=== PATIENT | male | born 1950 | race Caucasian/White ===

== ENCOUNTER → 2021-11-09 14:34 | Outpatient (CLI) | payer MEDICARE, OTHER, SELFPAY ==
--- NOTE | ~2021-11-09 | XR_ITS ---
EXAMINATION: XR lumbar spine 2-3V DATE: 11/09/2021 14:57 INDICATION: Leg and hip weakness TECHNIQUE: Anteroposterior and lateral views of the lumbar spine, and cone-down lateral view of the l umbosacral junction were obtained. COMPARISON: None. FINDINGS: There are changes of anterior fusion with interbody device placement at L5-S1. There are 2 mm of retrolisthesis of L5 on S1. Bone alignment is otherwise normal. There is no fracture. The verte bral body heights are normal. Small degenerative osteophytes project from the anterior endplates of m ultiple vertebral bodies. 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 The bowel gas pattern is normal. IMPRESSION: 1. Anterior surgical changes at L5-S1 with mild lumbar spondylosis elsewhere. Reviewed, dictated and finalized at location B.
== END ==
PROVIDERS: PCP Family Medicine; Visit Provider Physician Assistant Medical
DX: R29.898 Other symptoms and signs involving the musculoskeletal system (principal); M47.896 Other spondylosis, lumbar region
CPT/HCPCS: 72100

== ENCOUNTER 2021-11-13 07:19 | Outpatient (CLI) | payer MEDICARE, OTHER, SELFPAY ==
[2021-11-13 09:07] LABS: Hepatitis B Surface Antigen Negative (Negative)
[2021-11-13 09:14] LABS: HAV RESULT Negative (Negative); Hepatitis B Core IgM Result Negative (Negative)
[2021-11-13 09:25] LABS: Hepatitis C Virus Antibody Negative (Negative)
[2021-11-17 16:14] LABS: CK-BB None Detected (None Detected); CK-MB 5 % (<5); CK-MM 77 % (95-100)
[2021-11-17 18:51] LABS: Alpha Fetoprotein Tumor Marker 1.8 ng/mL (<6.1)
== END 2021-11-13 07:20 | disposition home or self-care (01) ==
PROVIDERS: PCP Family Medicine; Visit Provider Physician Assistant Medical
DX: R74.8 Abnormal levels of other serum enzymes (principal); R76.8 Other specified abnormal immunological findings in serum; R79.89 Other specified abnormal findings of blood chemistry
CPT/HCPCS: 36415; 80074; 82105; 82550; 82552

== ENCOUNTER 2021-11-17 07:41 | Outpatient (CLI) | payer MEDICARE, OTHER, SELFPAY ==
--- NOTE | ~2021-11-17 | MR_ITS ---
EXAMINATION: MR brain/brain stem wo/w con DATE: 11/17/2021 08:37 INDICATION: R41.3 - Other amnesia . Patient also complains of declining leg strength. TECHNIQUE: Magnetic resonance imaging (MRI) of the brain and brainstem was performed without and with 18 mL MultiHance intravenous contrast. Sequences included sagittal and axial T1-weighted SE, axial d iffusion-weighted FS EPI ASSET, axial T2*-weighted GRE, axial T2-weighted FLAIR Propeller, and axial T2-weighted Propeller. Postcontrast axial and coronal T1-weighted SE was obtained. Apparent diffusion coefficient (ADC) maps were created. COMPARISON: None. FINDINGS: No abnormal restricted diffusion to suggest acute ischemic infarct. No MRI evidence of hemorrhage or extra-axial collection. Small foci of susceptibility, nonspecific but most likely reflective of prior microhemorrhages . Normal white matter. No evidence of advanced or lobar predominant parenchymal vol ume loss. Ventricles normal. Basilar cisterns are patent. Flow voids are preserved. Unremarkable sinu ses/orbits. IMPRESSION: 1. Normal brain MRI findings. Reviewed, dictated and finalized at location K.
[2021-11-17 08:15] LABS: Estimated Glomerular Filt Rate > 60
== END 2021-11-17 07:42 | disposition home or self-care (01) ==
PROVIDERS: PCP Physician Assistant Medical; Visit Provider Physician Assistant Medical
DX: R41.3 Other amnesia (principal); R53.1 Weakness
CPT/HCPCS: 70553; A9577

== ENCOUNTER → 2021-11-19 10:58 | Outpatient (CLI) | payer MEDICARE, OTHER, SELFPAY ==
--- NOTE | ~2021-11-19 | US_ITS ---
EXAMINATION: US abdomen complete DATE: 11/19/2021 11:27 INDICATION: Other specified abnormal findings of blood chemistry TECHNIQUE: Multiple grayscale and Doppler ultrasound images of the abdomen were obtained. COMPARISON: None available FINDINGS: Bowel gas obscures visualization of the pancreas. The visualized portions are unremarkable. The liver is normal with normal echogenicity and echotexture. No surface nodularity. Normal hepatope jeovany flow in the main portal vein. The gallbladder is normal with no abnormal wall thickening, pericho lecystic fluid or stones. The normal common bile duct measures 4 mm. There was no sonographic Turcios sign. The visualized portions of the aorta and inferior vena cava are normal. The right kidney measures 12.2 x 5.5 x 6.8 cm. The left kidney measures 12.2 x 5.7 x 6.2 cm. The kidn eys demonstrate normal parenchymal echogenicity. There is no hydronephrosis. The spleen is normal in appearance and measures 10.8 cm. IMPRESSION: 1. No sonographic correlate for the patient's symptoms. Reviewed, dictated and finalized at location A.
== END ==
PROVIDERS: PCP Family Medicine; Visit Provider Physician Assistant Medical
DX: R79.89 Other specified abnormal findings of blood chemistry (principal)
CPT/HCPCS: 76700

== ENCOUNTER 2022-03-04 08:34 | Outpatient (CLI) | payer MEDICARE, OTHER, SELFPAY ==
--- NOTE | 2022-03-04 11:00 | NEURO_ITS ---
Impression: # Complains of numbness and weakness of lower extremities. Known diabetic with history of multiple back surgeries. 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 # Asymmetrical sensory, no response. # Abnormal study with asymmetrical axonal neuropathy. # Abnormal neurogenic changes on needle/EMG exam. Nerve Conduction Studies Anti Sensory Summary Table Stim Site NR Peak (ms) P-T Amp (?V) Site1 Site2 Delta-P (ms) Dist (cm) Bhaskar (m/s) Left Sup Fibular Anti Sensory (Ant Lat Mall) NO RESPONSE 14 cm NR 14 cm Ant Lat Mall 16.0 Right Sup Fibular Anti Sensory (Ant Lat Mall) NO RESPONSE 14 cm NR 14 cm Ant Lat Mall 16.0 Left Sural Anti Sensory (Lat Mall) Calf 3.8 17.0 Calf Lat Mall 3.8 16.0 42 Right Sural Anti Sensory (Lat Mall) NO RESPONSE Calf NR Calf Lat Mall 16.0 Motor Summary Table Stim Site NR Onset (ms) O-P Amp (mV) Site1 Site2 Delta-0 (ms) Dist (cm) Bhaskar (m/s) Left Peroneal Motor (Vastus Med) DISPERSED RESPONSE Ankle NR Popit Ankle 41.0 Popit NR Right Peroneal Motor (Vastus Med) NO RESPONSE Ankle NR Popit Ankle 0.0 Popit NR Left Tibial Motor (Abd Jacinto Brev) Ankle 5.4 0.5 Knee Ankle 11.1 44.0 40 Knee 16.5 0.6 Right Tibial Motor (Abd Jacinto Brev) Ankle 5.5 0.9 Knee Ankle 12.5 41.0 33 Knee 18.0 0.9 F Wave Studies NR F-Lat (ms) L-R F-Lat (ms) Left Peroneal (Mrkrs) (EDB) NO RESPONSE NR Right Peroneal (Mrkrs) (EDB) NO RESPONSE NR Left Tibial (Mrkrs) (Abd Hallucis) 56.61 1.17 Right Tibial (Mrkrs) (Abd Hallucis) 55.44 1.17 EMG Side Muscle Nerve Root Ins Act Fibs Amp Dur Recrt Comment Right AntTibialis Dp Br Fibular L4-5 Nml Nml Nml >12ms Reduced Right Gastroc Tibial S1-2 Nml Nml Nml >12ms Reduced Right Fibularis Long Sup Br Fibular L5-S1 Nml Nml Nml >12ms Reduced Right Flex Dig Long Tibial L5-S2 Nml Nml Nml >12ms Reduced Right Ext Dig Brev Dp Br Fibular L5, S1 Nml Nml Nml >12ms Reduced Left AntTibialis Dp Br Fibular L4-5 Nml Nml Nml >12ms Reduced Left Gastroc Tibial S1-2 Nml Nml Nml >12ms Reduced Left Fibularis Long Sup Br Fibular L5-S1 Nml Nml Nml >12ms Reduced Left Flex Dig Long Tibial L5-S2 Nml Nml Nml >12ms Reduced Left Ext Dig Brev Dp Br Fibular L5, S1 Nml Nml Nml >12ms Reduced MTDD
== END 2022-03-04 08:35 | disposition home or self-care (01) ==
PROVIDERS: PCP Family Medicine; Visit Provider Family Medicine
DX: R29.898 Other symptoms and signs involving the musculoskeletal system (principal); G57.93 Unspecified mononeuropathy of bilateral lower limbs
CPT/HCPCS: 95886; 95910

== ENCOUNTER 2023-08-18 10:29 | Outpatient (CLI) | payer MEDICARE, OTHER, SELFPAY ==
--- NOTE | ~2023-08-18 | CT_ITS ---
EXAMINATION: CT chest abdomen pelvis w con DATE: 08/18/2023 10:56 INDICATION: Solitary pulmonary nodule TECHNIQUE: Transaxial computed tomographic images of the chest, abdomen, and pelvis were obtained aft er the administration of 100 cc of Omnipaque 350 intravenous contrast. The dose-length product (DLP) was 739.17 mGy-cm. Automated exposure control and iterative reconstruction technique were employed. COMPARISON: None FINDINGS: CHEST CT: There is a 3 mm subpleural nodule of the right lower lobe. There is mild dependent atelectasis. No pl eural effusion or pneumothorax. Calcified pulmonary nodules and calcified bilateral hilar and mediast inal lymph nodes are consistent with old granulomatous disease. No pathologically enlarged thoracic l ymph nodes are identified. The heart size is normal. There is calcified coronary artery atheroscleros is. There are bridging osteophytes at multiple levels in the spine, consistent with diffuse idiopathi c skeletal hyperostosis (DISH). ABDOMEN/PELVIS CT: The liver is diffusely low in attenuation when compared with the spleen, consistent with hepatic stea tosis. Punctate calcifications in an otherwise normal spleen likely represent healed granulomatous di sease. The pancreas, gallbladder, and adrenal glands are normal. There is a 9 mm cyst of the left kid rolly. The right kidney is unremarkable. There is calcified atherosclerosis of the aorta and many of th e other arteries. No pathologically enlarged abdominal or pelvic lymph nodes are identified. No free intraperitoneal gas or evidence of bowel obstruction. There are changes of anterior fusion procedure at L5-S1. There are inguinal hernias containing fat. IMPRESSION: 1. Old granulomatous disease without suspicious pulmonary nodule identified. 2. Diffuse hepatic steatosis. No acute findings in the abdomen or pelvis. Reviewed, dictated and finalized at location L. ENTER ROUGH
[2023-08-18 10:51] LABS: Estimated Glomerular Filt Rate > 60
== END 2023-08-18 10:30 | disposition home or self-care (01) ==
LOC: ANHIMG 10:33
PROVIDERS: PCP Family Medicine; Visit Provider Nurse Practitioner Adult Health
DX: K76.0 Fatty (change of) liver, not elsewhere classified (principal); R91.1 Solitary pulmonary nodule
CPT/HCPCS: 71260; 74177; Q9967

== ENCOUNTER 2024-02-26 14:24 | Outpatient (CLI) | payer MEDICARE, OTHER, SELFPAY ==
--- NOTE | ~2024-02-26 | XR_ITS ---
3 VIEWS LUMBAR SPINE Ordering provider: Kelechi Murry MD History: . SURGEY MANY YEARS AGO/STRAINED LP WHILE WORKING . Comparison: November 09, 2021 FINDINGS: VERTEBRAL BODIES: No visible fracture or subluxation. Postoperative changes at the level of L5-S1. De generative changes of the spine. DISK SPACES: Normal. SOFT TISSUES: Normal. IMPRESSION: No acute osseous abnormality lumbar spine. Postoperative changes at the level of L5-S1. Reviewed, dictated and finalized at location A.
== END 2024-02-26 14:25 | disposition home or self-care (01) ==
PROVIDERS: PCP Family Medicine; Visit Provider Family Medicine
DX: M54.50 Low back pain, unspecified (principal)
CPT/HCPCS: 72114